=== PATIENT | female | born 1935 | race Caucasian/White ===

== ENCOUNTER → 2016-09-01 | Outpatient (CLI) | payer BC ==
[2013-12-10 18:40] VITALS: BP 124/78
[~2016-09-01] MED LIST: CALCIUM-500 5001 CTB; CHILDREN'S ASPI81 M1; LEVOTHROID0.175 MG PO; LUMIGAN 2.5 ML2.5 M1 OP; MULTIPLE VITAMI1 TAB PO; NORCO 325 MG-51 TAB PO; OMEGA 3 120 MG-1 CAP PO; PEPCID AC20 M1 PO; PRILOSEC 20MG20 MG PO; SIMVASTATIN20 MG PO; SLOW-MAG535 MG PO; VERAPAMIL ER240 MG PO; ZESTRIL10 MG PO
== END ==
LOC: RAD 13:06
DX: M25.561 Pain in right knee (principal)

== ENCOUNTER → 2017-11-06 | Outpatient (CLI) | payer MEDICARE ==
[2013-12-10 18:40] VITALS: BP 124/78
== END ==
LOC: MAMMO 13:00 → RAD 13:00
DX: Z13.820 Encounter for screening for osteoporosis (principal); M85.80 Other specified disorders of bone density and structure, unspecified site

== ENCOUNTER 2017-11-29 11:00 | Outpatient (RCR) | payer MEDICARE ==
[2013-12-10 18:40] VITALS: BP 124/78
== END 2017-11-29 11:30 | disposition home or self-care (01) ==
LOC: PT 11:00
DX: M25.561 Pain in right knee (principal); G89.29 Other chronic pain
CPT/HCPCS: G8978-GP; G8979-GP; G8985-GP

== ENCOUNTER → 2018-10-10 | Outpatient (CLI) | payer MEDICARE ==
[2013-12-10 18:40] VITALS: BP 124/78
[2018-10-10 15:31] LABS: BASO # 0.1 (0.02-0.10); EOS # 0.3 (0.04-0.40); EOS % 2.5 % (1.0-5.0); HEMATOCRIT 43.5 % (37.0-47.0); HEMOGLOBIN 14.1 g/dL (12.5-16.0); LYMPH# 2.4 (1.50-4.00); MEAN CELL VOLUME 85 fl (78-100); MEAN CORPUSCULAR HEMOGLOBIN 28 pg (27-31); MEAN CORPUSCULAR HGB CONC 32 g/dL (33-37); MEAN PLATELET VOLUME 11.6 fl (7.4-10.4); MONO # 1.2 (0.20-0.80); NEU # 6.2 (1.40-6.50); PLATELET COUNT 315 K/mm3 (130-400); RED BLOOD COUNT 5.13 M/mm3 (4.10-5.30); RED CELL DISTRIBUTION WIDTH 15.3 % (11.5-14.5); WHITE BLOOD COUNT 10.1 K/mm3 (4.8-10.8)
[2018-10-10 15:52] LABS: ALBUMIN 4.1 g/dL (3.4-4.8); CALCIUM 9.7 mg/dL (8.3-10.5); POTASSIUM 4.5 mmol/L (3.5-5.1); TOTAL BILIRUBIN 0.4 mg/dL (0.2-1.2)
[2018-10-10 16:17] LABS: URINE APPEARANCE CLEAR; URINE BILIRUBIN NEGATIVE (NEGATIVE); URINE BLOOD NEGATIVE (NEGATIVE); URINE COLOR YELLOW; URINE GLUCOSE NEGATIVE (NEGATIVE); URINE KETONE NEGATIVE (NEGATIVE); URINE LEUKOCYTE ESTERASE 1+ (NEGATIVE); URINE NITRATE NEGATIVE (NEGATIVE); URINE PROTEIN(semi-quant) NEGATIVE (NEGATIVE); URINE UROBILINOGEN NORMAL (NORMAL)
== END ==
LOC: RAD 14:47
PROVIDERS: Family Medicine
DX: K44.9 Diaphragmatic hernia without obstruction or gangrene (principal); K57.30 Diverticulosis of large intestine without perforation or abscess without bleeding; M51.37 Other intervertebral disc degeneration, lumbosacral region; Z98.890 Other specified postprocedural states

== ENCOUNTER 2019-01-23 11:30 | Outpatient (RCR) | payer MEDICARE ==
[2013-12-10 18:40] VITALS: BP 124/78
== END 2019-02-24 | disposition still patient (30) ==
LOC: PT
DX: M25.511 Pain in right shoulder (principal); G89.29 Other chronic pain

== ENCOUNTER → 2021-09-09 | Outpatient (CLI) | payer MEDICARE | LOC: RAD 13:23 | DX: M47.812 Spondylosis without myelopathy or radiculopathy, cervical region (principal) ==

== ENCOUNTER 2021-10-18 14:02 | Outpatient (RCR) | payer MEDICARE | END 2021-11-09 | disposition home or self-care (01) | LOC: PT | DX: M54.2 Cervicalgia (principal); R29.6 Repeated falls ==

== ENCOUNTER 2021-11-16 15:00 | Outpatient (RCR) | payer MEDICARE | END 2021-12-10 | disposition home or self-care (01) | LOC: PT | DX: M54.2 Cervicalgia (principal); R29.6 Repeated falls ==

== ENCOUNTER 2021-12-12 07:49 | Outpatient (RCR) | payer MEDICARE | END 2022-01-10 | disposition home or self-care (01) | LOC: PT | DX: M54.2 Cervicalgia (principal); R29.6 Repeated falls ==

== ENCOUNTER → 2022-01-18 | Outpatient (CLI) | payer MEDICARE | LOC: MAMMO 12:15 | DX: N63.20 Unspecified lump in the left breast, unspecified quadrant (principal) ==

== ENCOUNTER → 2022-02-01 | Outpatient (CLI) | payer MEDICARE | LOC: RAD 12:17 | DX: N63.20 Unspecified lump in the left breast, unspecified quadrant (principal) | CPT/HCPCS: 15989; 15990; A4648 ==

== ENCOUNTER → 2022-05-29 | Outpatient (CLI) | payer MEDICARE | LOC: RAD 05-22 14:00 → VAS 05-22 14:00 → RAD 05-23 14:00 → MAMMO 05-23 14:30 → VAS 14:53 | DX: R01.1 Cardiac murmur, unspecified (principal) ==